=== PATIENT | male | born 1970 | race African-American/Black ===

== ENCOUNTER 2019-06-28 08:05 | Observation (INO) | payer OTHER ==
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
[2019-06-28 09:42] LABS: BASO % 0.7 % (0-2.0); EOS % 5.9 % (0-4.5); HEMATOCRIT 39.3 % (35.4-49); HEMOGLOBIN 12.9 GM/dL (11.7-16.9); LYMPH % 26.2 % (8-40); MCH 26.9 pg (25.7-33.7); MCHC 32.9 g/dl (32.0-35.9); MEAN CELL VOLUME 81.8 fl (80-96); MEAN PLT VOLUME 8.7 fl (7.5-11.1); MONO % 6.5 % (3.8-10.2); NEUT % 60.7 % (42.8-82.8); PLATELET COUNT 224 K/MM3 (134-434); RDW 13.9 % (11.9-15.9); WHITE BLOOD COUNT 5.9 K/mm3 (4.0-10.0)
[2019-06-28 10:10] LABS: ALBUMIN 3.8 g/dl (3.4-5.0); ALK PHOS 84 U/L (45-117); ANION GAP 10 MMOL/L (8-16); BILIRUBIN,TOTAL 0.3 mg/dL (0.2-1); BLOOD UREA NITROGEN 12.4 mg/dL (7-18); CALCIUM 8.4 mg/dL (8.5-10.1); CHLORIDE 102 mmol/L (98-107); CO2 25 mmol/L (21-32); CREATININE 0.8 mg/dL (0.55-1.3); GLUCOSE,RANDOM 108 mg/dL (74-106); MAGNESIUM 2.3 mg/dL (1.8-2.4); N-TERMINAL BNP 17.2 pg/ml (5-125); PHOSPHOROUS 3.4 mg/dL (2.5-4.9); POTASSIUM 3.8 mmol/L (3.5-5.1); SGOT/AST 27 U/L (15-37); SGPT/ALT 22 U/L (13-61); SODIUM 136 mmol/L (136-145); TOT PROT 7.3 g/dl (6.4-8.2)
[2019-06-28] MEDS ORDERED: SODIUM CHLORIDE 0.9% 500 ML INFUS.BAG IV ONE (11:29)
[2019-06-28 12:28] LABS: URINE APPEARANCE CLEAR; URINE BILIRUBIN NEGATIVE (NEGATIVE); URINE COLOR YELLOW; URINE GLUCOSE (UA) NEGATIVE (NEGATIVE); URINE KETONE NEGATIVE (NEGATIVE); URINE LEUK ESTERASE NEGATIVE (NEGATIVE); URINE NITRITE NEGATIVE (NEGATIVE); URINE PROTEIN NEGATIVE (NEGATIVE); URINE UROBILINOGEN 0.2 mg/dL (0.2-1.0)
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
[2019-06-28] MEDS ORDERED: ACETAMINOPHEN 325 MG TABLET (FP) PO PRN (12:52)
[2019-06-28] MEDS ORDERED: amLODIPine BESYLATE 5 MG TABLET (FP) PO ONE (13:05)
[2019-06-28] MEDS ORDERED: amLODIPine BESYLATE 5 MG TABLET (FP) ONE (13:18)
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
[2019-06-28] MEDS ORDERED: HEPARIN NA (PORCINE) 5,000 UNITS/ML 1ML VIAL ONE (22:03)
--- NOTE | 2019-06-28 23:12 | EKG ---
Test Reason : Blood Pressure : / mmHG Vent. Rate : 061 BPM Atrial Rate : 061 BPM P-R Int : 146 ms QRS Dur : 102 ms QT Int : 442 ms P-R-T Axes : 025 066 068 degrees QTc Int : 444 ms NORMAL SINUS RHYTHM NONSPECIFIC T WAVE ABNORMALITY ABNORMAL ECG WHEN COMPARED WITH ECG OF 09-MAR-2002 05:51, NO SIGNIFICANT CHANGE WAS FOUND Confirmed by BOB MACIAS MD ([id number]) on 06/28/2019 11:11:54 PM Referred By: Confirmed By:BOB MACIAS MD
[2019-06-28] MEDS: HEPARIN NA (PORCINE) 5,000 UNITS/ML 1ML VIAL SQ SCH (23:16)
[2019-06-29 06:39] LABS: BASO % 0.7 % (0-2.0); EOS % 1.4 % (0-4.5); HEMATOCRIT 40.8 % (35.4-49); HEMOGLOBIN 13.6 GM/dL (11.7-16.9); LYMPH % 18.7 % (8-40); MCHC 33.2 g/dl (32.0-35.9); MEAN CELL VOLUME 81.3 fl (80-96); MEAN PLT VOLUME 8.4 fl (7.5-11.1); NEUT % 73.2 % (42.8-82.8); PLATELET COUNT 261 K/MM3 (134-434); RBC 5.02 M/mm3 (4.00-5.60); RDW 13.7 % (11.9-15.9); WHITE BLOOD COUNT 8.4 K/mm3 (4.0-10.0)
[2019-06-29 07:19] LABS: ALBUMIN 3.7 g/dl (3.4-5.0); ALK PHOS 86 U/L (45-117); ANION GAP 6 MMOL/L (8-16); BILIRUBIN,TOTAL 0.8 mg/dL (0.2-1); BLOOD UREA NITROGEN 12.1 mg/dL (7-18); CHLORIDE 106 mmol/L (98-107); CHOLESTEROL 221 mg/dL (50-200); CO2 27 mmol/L (21-32); CREATININE 0.7 mg/dL (0.55-1.3); GLUCOSE,RANDOM 101 mg/dL (74-106); HDL CHOLESTEROL 35 mg/dL (40-60); LDL CHOLESTEROL (ONLY SJRH) 154 mg/dL (5-100); POTASSIUM 4.1 mmol/L (3.5-5.1); SGOT/AST 19 U/L (15-37); SGPT/ALT 20 U/L (13-61); SODIUM 139 mmol/L (136-145); TOT PROT 7.3 g/dl (6.4-8.2); TRIGLYCERIDES 93 mg/dL (0-150)
--- NOTE | 2019-06-29 09:12 | CON.CARD ---
Consult Consult Specialty:: Cardiology Referred by:: Dr. Rojas Reason for Consultation:: Syncope vs Seizure - History of Present Illness Chief Complaint: "I fell out" History of Present Illness: 49 M with no PMH who had a possible syncopal episode while waiting for bus. He has no recollection of event. Denies antecedent CP/SOB/Palps No cardiac hx. No recent prolonged travel. Trauma to left eye/forehead. Seen by Neuro- Syncope vs Seizure Head CT negative. Hypertensive in ER. - History Source History Provided By: Patient Limitations to Obtaining History: No Limitations - Past Medical History SECURITY SME: No: Alzheimer's, CVA, Dementia, Migraine, Multiple Sclerosis, Peripheral Neuropathy, Parkinson's, Seizure, Syncope, TIA, Vertigo, Other Cardio/Vascular: No: AFIB, Aneurysm, Aortic Insufficiency, Aortic Stenosis, CAD , CHF, Deep Vein Thrombosis, HTN, Hyperlipdemia, MD, Mitral Insufficiency, Mitral Stenosis, Murmur, Pulmonary Hypertension, Other Pulmonary: No: Asthma, Bronchitis, Cancer, COPD, O2 Dependent, Pneumonia, Previously Intubated, Pulmonary Embolus, Pulmonary Fibrosis, Sleep Apnea, Other Gastrointestinal: No: Ascites, Cancer, Constipation, Crohn's Disease, Diverticulitis, Diverticulosis, Esophageal Varices, Gastritis, GERD, GI Bleed, Hemorrhoids, Hiatal Hernia, Inflamatory Bowel Disease, Irritable Bowel Disease, Pancreatitis, Peptic Ulcer Disease, Ulcerative Colitis, Other Hepatobiliary: No: Cirrhosis, Cholelithiasis, Cholecystitis, Choledocholithiasis , Hepatitis A, Hepatitis B, Hepatitis C, Other Renal/: No: Renal Failure, Renal Inusuff, BPH, Cancer, Hematuria, Hemodialysis , Neurogenic Bladder, Renal Calculi, UTI, Other Heme/Onc: No: Anemia, B12 Deficiency, Bleeding Disorder, Cancer, Current Chemotherapy, Current Radiation Therapy, Hemochromatosis, Hypercoaguable State, Myeloproliferative Synd, Sickle Cell Disease, Sickle Cell Trait, Thrombocytopenia, Other Infectious Disease: No: AIDS, C-Diff, Herpes Zoster, HIV, MRSA, STD's, Tuberculosis, VREF, Other Psych: No: Addictions, Anxiety, Bipolar, Depression, Panic, Psychosis, Schizophrenia, Other Rheumatology: No: Fibromyalgia, Gout, Lupus, Rheumatoid Arthritis, Sarcoidosis, Vasculitis, Other ENT: No: Allergic Rhinitis, Sinusitis, Other Endocrine: No: [place]'s Disease, Florence's Disease, Diabetes Insipidus, Diabetes Mellitus, Hyperparathyroidism, Hyperthyroidism, Hypothyroidism, Osteopenia, SIADH, Other Dermatology: No: Basal Cell, Cellulitis, Eczema, Melanoma, Psoriasis, Squamous Cell, Other - Past Surgical History Past Surgical History: No: None, AAA Repair, AICD, Amputation, Appendectomy, Arthrosocopy, AV Fistula/Graft, Bariatric Surgery, Breast Biopsy, Bypass, CABG, Carotid Endarterectomy, Cataract Removal, Cholecystectomy, Colectomy, Colonoscopy, Colostomy, Craniotomy, , Cystectomy, Hernia Repair, Hysterectomy, Ileal Conduit, Ileosotomy, Joint Replacement, Kidney Transplant, Laminectomy, Liver Transplant, Mastectomy, Nephrectomy, Oopherectomy, Orchiectomy, Permanent Pacemaker, Prostatectomy, Splenectomy, Stent, Thoracotomy , TURP, Tonsillectomy, Tubal Ligation, Upper Endoscopy, Valve Replacement, Vasectomy, Vein Stripping/Ligation - Alcohol/Substance Use Hx Alcohol Use: No - Smoking History Smoking history: Never smoked - Social History History of Recent Travel: No Home Medications - Allergies Allergies/Adverse Reactions: Allergies Allergy/AdvReac Type Severity Reaction Status Date / Time No Known Allergies Allergy Verified 06/28/19 10:33 - Home Medications Home Medications: Ambulatory Orders Naproxen 500 mg PO BID 06/28/19 Family Medical History Family History: Unremarkable Review of Systems - Review of Systems Constitutional: reports: No Symptoms Eyes: reports: No Symptoms HENT: reports: No Symptoms Neck: reports: No Symptoms Cardiovascular: reports: No Symptoms Respiratory: reports: No Symptoms Gastrointestinal: reports: No Symptoms Genitourinary: reports: No Symptoms Breasts: reports: No Symptoms Reported Musculoskeletal: reports: No Symptoms Integumentary: reports: No Symptoms Neurological: reports: No Symptoms Endocrine: reports: No Symptoms Hematology/Lymphatic: reports: No Symptoms Psychiatric: reports: No Symptoms - Risk Factors Known Risk Factors: Yes: Hypertension Vital Signs: Vital Signs Temperature 97.7 F 06/29/19 06:00 Pulse Rate 69 06/29/19 06:00 Respiratory Rate 20 06/29/19 06:00 Blood Pressure 118/72 06/29/19 06:00 O2 Sat by Pulse Oximetry (%) 96 06/28/19 16:50 Constitutional: Yes: No Distress, Calm Eyes: Yes: Conjunctiva Clear, EOM Intact HENT: Yes: Other (Left forehead hematoma) Respiratory: Yes: CTA Bilaterally Gastrointestinal: Yes: Soft, Abdomen, Obese Cardiovascular: Yes: Regular Rate and Rhythm JVD: No Carotid Bruit: No PMI: Non-Displaced Heart Sounds: Yes: S1, S2 (RRR, no murmurs) Edema: No Peripheral Pulses WNL: Yes Neurological: Yes: Alert ...Motor Strength: WNL - Other Data Labs, Other Data: CBC, BMP 06/29/19 06:08 06/29/19 06:08 INR, PTT INR Cancelled 06/28/19 09:15 Troponin, BNP 06/28/19 06/28/19 06/29/19 09:15 09:15 06:08 Troponin I < 0.02 < 0.02 B-Natriuretic Peptide 17.2 Cancelled Troponin, BNP 06/28/19 06/28/19 06/29/19 09:15 09:15 06:08 Troponin I < 0.02 < 0.02 B-Natriuretic Peptide 17.2 Cancelled Laboratory Tests 06/28/19 06/29/19 06/29/19 09:15 06:08 06:08 WBC 8.4 Hgb 13.6 Plt Count 261 Sodium 139 Potassium 4.1 Creatinine 0.7 Hemoglobin A1c % AST 19 ALT 20 Alkaline Phosphatase 86 Creatine Kinase 282 Troponin I < 0.02 < 0.02 Cholesterol 221 H HDL Cholesterol 35 L TSH 0.85 06/29/19 06:08 WBC Hgb Plt Count Sodium Potassium Creatinine Hemoglobin A1c % 5.6 AST ALT Alkaline Phosphatase Creatine Kinase Troponin I Cholesterol HDL Cholesterol TSH ECG shows NSR with HR 61, QRS 102, QTc 444 no evidence of ischemic changes, has TWI in V4-V5. No prior for comparison. Stress Echo: Pending Imaging - Results Chest X-ray: Image Reviewed Cat Scan: Image Reviewed Assessment/Plan IMP: Syncope vs Seizure (unlikely pulmonary embolism: no tachycardia/ normal O2 sat) HTN REC: 1. Tele to r/o arrhythmia 2. Echo for EF assessment 3. Neuro eval ongoing 4. Amlodipine 5mg daily for moderate HTN. Will follow.
[2019-06-29] MEDS ORDERED: amLODIPine BESYLATE 5 MG TABLET (FP) ONE (10:52)
[2019-06-29] MEDS ORDERED: HEPARIN NA (PORCINE) 5,000 UNITS/ML 1ML VIAL ONE (10:53)
[2019-06-29] MEDS: amLODIPine BESYLATE 5 MG TABLET (FP) PO SCH (11:00)
[2019-06-29] MEDS: HEPARIN NA (PORCINE) 5,000 UNITS/ML 1ML VIAL SQ SCH ×2 (11:00→21:11)
--- NOTE | 2019-06-29 11:35 | PN ---
Physical Exam: SUBJECTIVE: Patient seen and examined. He feels lightheaded and sleepy. OBJECTIVE: Vital Signs Period Temp Pulse Resp BP Sys/Agosto Pulse Ox Last 24 Hr 97.7 F-98.7 F 61-72 16-20 118-184/72-93 96 GENERAL: The patient is drowsy, and fully oriented, in no acute distress. HEENT: Left periorbital edema LUNGS: Breath sounds equal, clear to auscultation bilaterally, no wheezes, no crackles, no accessory muscle use. HEART: Regular rate and rhythm, S1, S2 without murmur, rub or gallop. ABDOMEN: Obese, soft, nontender, nondistended, normoactive bowel sounds, no guarding, no rebound, no hepatosplenomegaly, no masses. EXTREMITIES: 2+ pulses, warm, well-perfused, trace edema. Laboratory Results - last 24 hr 06/28/19 06/28/19 06/29/19 09:15 09:56 06:08 WBC 8.4 RBC 5.02 Hgb 13.6 Hct 40.8 MCV 81.3 MCH 27.0 MCHC 33.2 RDW 13.7 Plt Count 261 MPV 8.4 Absolute Neuts (auto) 6.1 Neutrophils % 73.2 D Lymphocytes % 18.7 D Monocytes % 6.0 Eosinophils % 1.4 Basophils % 0.7 Nucleated RBC % 0 Sodium Potassium Chloride Carbon Dioxide Anion Gap BUN Creatinine Est GFR (CKD-EPI)AfAm Est GFR (CKD-EPI)NonAf Random Glucose Hemoglobin A1c % Calcium Total Bilirubin AST ALT Alkaline Phosphatase Creatine Kinase Creatine Kinase Index 1.5 CK-MB (CK-2) 7.4 H Troponin I Total Protein Albumin Triglycerides Cholesterol Total LDL Cholesterol HDL Cholesterol TSH Urine Color Yellow Urine Appearance Clear Urine pH 7.0 Ur Specific [place] 1.015 Urine Protein Negative Urine Glucose (UA) Negative Urine Ketones Negative Urine Blood Negative Urine Nitrite Negative Urine Bilirubin Negative Urine Urobilinogen 0.2 Ur Leukocyte Esterase Negative 06/29/19 06/29/19 06:08 06:08 WBC RBC Hgb Hct MCV MCH MCHC RDW Plt Count MPV Absolute Neuts (auto) Neutrophils % Lymphocytes % Monocytes % Eosinophils % Basophils % Nucleated RBC % Sodium 139 Potassium 4.1 Chloride 106 Carbon Dioxide 27 Anion Gap 6 L BUN 12.1 Creatinine 0.7 Est GFR (CKD-EPI)AfAm 127.53 Est GFR (CKD-EPI)NonAf 110.04 Random Glucose 101 Hemoglobin A1c % 5.6 Calcium 9.0 Total Bilirubin 0.8 AST 19 ALT 20 Alkaline Phosphatase 86 Creatine Kinase 282 Creatine Kinase Index 1.1 CK-MB (CK-2) 3.3 Troponin I < 0.02 Total Protein 7.3 Albumin 3.7 Triglycerides 93 Cholesterol 221 H Total LDL Cholesterol 154 H HDL Cholesterol 35 L TSH 0.85 Urine Color Urine Appearance Urine pH Ur Specific [place] Urine Protein Urine Glucose (UA) Urine Ketones Urine Blood Urine Nitrite Urine Bilirubin Urine Urobilinogen Ur Leukocyte Esterase Active Medications Generic Name Dose Route Start Last Admin Trade Name Freq PRN Reason Stop Dose Admin Acetaminophen 650 mg 06/28/19 12:52 Tylenol - PO Q6H PRN PAIN LEVEL 4 - 6 Amlodipine Besylate 5 mg 06/30/19 10:00 Norvasc - PO DAILY MEERA Heparin Sodium (Porcine) 5,000 unit 06/28/19 22:00 06/28/19 23:16 Heparin - SQ 5,000 unit BID MEERA Administration ASSESSMENT/PLAN: This is a 49 year old man with a history of HTN, syncope who presented to the ED after passing out at a bus stop on his way to work. 1. Syncope - Monitor for arrhythmia on telemetry - Orthostatic vitals - Echo - Outpatient EEG 2. Head trauma - Head CT shows no acute pathology, right frontal encephalomalacia, left temporal hypodensity probably encephalomalacia, right frontal rosario hole, mild to moderate bilateral cerebellar atrophy, partial opacification of left maxillary sinus, mild mucosal thickening of right maxillary sinus, left superficial soft tissue hematoma - Facial bones CT showed no acute fracture, superficial soft tissue hematoma left mid-face - C-spine CT showed no acute fracture 3. HTN - Continue Norvasc 4. Hyperlipidemia - Start Lipitor Visit type - Emergency Visit Emergency Visit: Yes ED Registration Date: 06/28/19 Care time: The patient presented to the Emergency Department on the above date and was hospitalized for further evaluation of their emergent condition. - New Patient This patient is new to me today: Yes Date on this admission: 06/29/19 - Critical Care Critical Care patient: No - Discharge Referral Referred to [facility] No
[2019-06-29 16:43] VITALS: BMI 37.8
[2019-06-29] MEDS ORDERED: ATORVASTATIN CA 10 MG TABLET (FP) PO SCH (22:00)
--- NOTE | 2019-06-30 08:09 | PN ---
Progress Note, Physician Chief Complaint: Examined with mother at bedside. Pending TTE History of Present Illness: The patient is a 49 year old male, with a significant PMH of HTN who presents to the emergency department BIB after a syncopal fall resulting in facial injury. Patient reports that he woke up this morning, and remembers eating eggs and a bagel, then taking the bus to work. As per EMS, the patient syncopized while walking to work at [employer] outside. Patient does not remember the syncopal event. Patient endorses one syncopal episode where he fell down the stairs. Patient currently endorses facial and jaw pain, and some lightheadedness. The patient denies chest pain, shortness of breath and dizziness. Denies fever, chills, nausea, vomiting, diarrhea and constipation. Denies dysuria, frequency, urgency and hematuria. Denies any other symptoms. - Current Medication List Current Medications: Active Medications Acetaminophen (Tylenol -) 650 mg PO Q6H PRN PRN Reason: PAIN LEVEL 4 - 6 Amlodipine Besylate (Norvasc -) 5 mg PO DAILY [facility] Last Admin: 06/29/19 11:00 Dose: 5 mg Atorvastatin Calcium (Lipitor -) 10 mg PO HS [facility] Last Admin: 06/29/19 21:11 Dose: 10 mg Heparin Sodium (Porcine) (Heparin -) 5,000 unit SQ BID [facility] Last Admin: 06/29/19 21:11 Dose: 5,000 unit - Objective Vital Signs: Vital Signs Temperature 98.2 F 06/30/19 05:33 Pulse Rate 64 06/30/19 05:33 Respiratory Rate 18 06/30/19 05:33 Blood Pressure 144/99 06/30/19 05:33 O2 Sat by Pulse Oximetry (%) 98 06/29/19 20:32 Constitutional: Yes: Well Nourished, No Distress, Calm Eyes: Yes: WNL, Conjunctiva Clear HENT: Yes: WNL, Atraumatic, Normocephalic Neck: Yes: WNL, Supple, Trachea Midline Cardiovascular: Yes: WNL Respiratory: Yes: WNL, Regular, CTA Bilaterally Gastrointestinal: Yes: WNL, Normal Bowel Sounds ...Rectal Exam: Yes: Deferred Genitourinary: Yes: WNL Breast(s): Yes: WNL Musculoskeletal: Yes: WNL Extremities: Yes: WNL Edema: No Peripheral Pulses WNL: Yes Peripheral Pulses: Left Radial: 2+, Right Radial: 2+, Left Doralis Pedis: 2+, Right Dorsalis Pedis: 2+, Left Femoral: 2+, Right Femoral: 2+ Integumentary: Yes: Bruising, Other (abrasion to left eye) Neurological: Yes: WNL, Alert, Oriented ...Motor Strength: WNL Psychiatric: Yes: WNL Labs: CBC, BMP 06/29/19 06:08 06/29/19 06:08 INR, PTT INR Cancelled 06/28/19 09:15 - ....Imaging Cat Scan: Report Reviewed (Head CT shows no acute pathology, right frontal encephalomalacia, left temporal hypodensity probably encephalomalacia, right frontal rosario hole, mild to moderate bilateral cerebellar atrophy, partial opacification of left maxillary sinus, mild mucosal thickening of right maxillary sinus, left superficial soft tissue hematoma - Facial bones CT showed no acute fracture, superficial soft tissue hematoma left mid-face - C-spine CT showed no acute fracture) Problem List - Problems (1) HTN (hypertension) Assessment/Plan: BP better controlled on norvasc c/w 10mg daily Code(s): I10 - ESSENTIAL (PRIMARY) HYPERTENSION (2) Facial abrasion Assessment/Plan: abrasion sustained during fall bacitracin BID Code(s): S00.81XA - ABRASION OF OTHER PART OF HEAD, INITIAL ENCOUNTER (3) Prophylactic measure Assessment/Plan: FEN low sodium diet no additional IVF, adequate PO intake monitor electrolytes and Cr DVT heparin sq Dispo maintain in tele full code discharge planning Code(s): Z29.9 - ENCOUNTER FOR PROPHYLACTIC MEASURES, UNSPECIFIED (4) Syncope and collapse Assessment/Plan: HCT/C spine without acute pathology TTE pending appreciate cardiology consultation if normal, will dc with follow up with home PCP at [facility] neorology consultation Code(s): R55 - SYNCOPE AND COLLAPSE Visit type - Emergency Visit Emergency Visit: Yes ED Registration Date: 06/28/19 Care time: The patient presented to the Emergency Department on the above date and was hospitalized for further evaluation of their emergent condition. - New Patient This patient is new to me today: Yes Date on this admission: 06/30/19 - Critical Care Critical Care patient: No - Discharge Referral Referred to [facility] No
--- NOTE | 2019-06-30 10:03 | PN ---
Progress Note, Physician Chief Complaint: syncope History of Present Illness: no anxiety/panic, no tachy no cp, sob (including walks a lot at work) no dizzy/presyncope +prodrome of dizzy/LH when fainted (couple of seconds only) no assctd neuro deficits admits to several recent episodes dizzy/LH at work, fell (without LOC) couple of times does not drink much fluid except coke on DOA, hadn't eaten or drank anything b/c waits till he gets to work--that is his usual routine - Current Medication List Current Medications: Active Medications Acetaminophen (Tylenol -) 650 mg PO Q6H PRN PRN Reason: PAIN LEVEL 4 - 6 Amlodipine Besylate (Norvasc -) 5 mg PO DAILY [facility] Last Admin: 06/29/19 11:00 Dose: 5 mg Atorvastatin Calcium (Lipitor -) 10 mg PO HS [facility] Last Admin: 06/29/19 21:11 Dose: 10 mg Heparin Sodium (Porcine) (Heparin -) 5,000 unit SQ BID [facility] Last Admin: 06/29/19 21:11 Dose: 5,000 unit - Objective Vital Signs: Vital Signs Temperature 98.2 F 06/30/19 05:33 Pulse Rate 64 06/30/19 05:33 Respiratory Rate 18 06/30/19 05:33 Blood Pressure 144/99 06/30/19 05:33 O2 Sat by Pulse Oximetry (%) 98 06/29/19 20:32 Constitutional: Yes: Well Nourished, No Distress, Calm Cardiovascular: Yes: Regular Rate and Rhythm, S1, S2. No: Gallop, Murmur Respiratory: Yes: Regular, CTA Bilaterally. No: Accessory Muscle Use, Rales, Wheezes Extremities: No: Cold Edema: No Neurological: Yes: Alert, Oriented Psychiatric: No: Agitated Labs: CBC, BMP 06/29/19 06:08 06/29/19 06:08 INR, PTT INR Cancelled 06/28/19 09:15 Assessment/Plan ECG shows NSR with HR 61, QRS 102, QTc 444 no evidence of ischemic changes, has TWI in V4-V5. No prior for comparison. Assessment/Plan IMP: Syncope vs Seizure (unlikely pulmonary embolism: no tachycardia/ normal O2 sat) HTN REC: -Tele to r/o arrhythmia -Echo for EF assessment -Neuro eval ongoing -Amlodipine 5mg daily for 150s/100s range initially--bp improved -orthostatics WNL, no signs of volume depletion on presentation -advised pt and mother, assuming tele and echo here are unremarkable, he should go home and have prolonged rhythm monitor as outpt--he prefers to arrange this as an outpt through his [facility] PMD
[2019-06-30 10:13] LABS: BASO % 0.4 % (0-2.0); EOS % 2.5 % (0-4.5); HEMATOCRIT 42.4 % (35.4-49); HEMOGLOBIN 13.9 GM/dL (11.7-16.9); LYMPH % 25.8 % (8-40); MCHC 32.9 g/dl (32.0-35.9); MEAN CELL VOLUME 82.2 fl (80-96); MEAN PLT VOLUME 8.8 fl (7.5-11.1); MONO % 5.2 % (3.8-10.2); NEUT % 66.1 % (42.8-82.8); PLATELET COUNT 270 K/MM3 (134-434); RBC 5.15 M/mm3 (4.00-5.60); RDW 13.8 % (11.9-15.9); WHITE BLOOD COUNT 7.4 K/mm3 (4.0-10.0)
[2019-06-30] MEDS ORDERED: PT OWN MED DRAWER 7, Y5N ONE ×2 (10:25→13:14)
[2019-06-30] MEDS: amLODIPine BESYLATE 5 MG TABLET (FP) PO SCH (10:35)
[2019-06-30] MEDS: HEPARIN NA (PORCINE) 5,000 UNITS/ML 1ML VIAL SQ SCH (10:35)
[2019-06-30 10:40] LABS: ALBUMIN 3.6 g/dl (3.4-5.0); BILIRUBIN,TOTAL 0.5 mg/dL (0.2-1); BLOOD UREA NITROGEN 19.4 mg/dL (7-18); CALCIUM 9.2 mg/dL (8.5-10.1); CREATININE 0.8 mg/dL (0.55-1.3); MAGNESIUM 2.5 mg/dL (1.8-2.4); POTASSIUM 3.8 mmol/L (3.5-5.1); TOT PROT 7.3 g/dl (6.4-8.2)
[2019-06-30 14:31] VITALS: BP 136/89; PULSE 103; TEMP 98.2
--- NOTE | 2019-06-30 15:59 | ECHO ---
Name: MICHELLE JOHNSON Exam:Adult Echocardiogram Study Date: 06/30/2019 11:20 AM Age: 49 yrs Height: 72 in Weight: 340 lb BSA: 2.7 m2 MMode/2D Measurements & Calculations IVSd: 0.95 cm Ao root diam: 2.9 cm LVIDd: 4.4 cm LA dimension: 3.1 cm LVIDs: 3.0 cm LVPWd: 1.2 cm LVPWs: 1.5 cm EDV(Teich): 89.1 ml ESV(Teich): 34.8 ml LVOT diam: 2.2 cm Doppler Measurements & Calculations MV E max humphrey: 41.0 cm/sec Ao V2 max: 132.2 cm/sec MV A max humphrey: 61.7 cm/sec Ao max P.0 mmHg MV E/A: 0.66 MV dec time: 0.19 sec PA V2 max: 118.8 cm/sec PI end-d humphrey: 118.8 cm/sec PA max P.6 mmHg Med Peak E' Humphrey: 6.0 cm/sec Med E/e': 6.8 Lat Peak E' Humphrey: 7.8 cm/sec Lat E/e': 5.3 Procedure A complete two-dimensional transthoracic echocardiogram was performed (2D, M-mode, Doppler and color flow Doppler). Left Ventricle The left ventricle is normal in size. Left ventricular systolic function is normal. Ejection Fraction = 60- 65%. No regional wall motion abnormalities noted. Right Ventricle The right ventricle is normal size. The right ventricular systolic function is normal. Atria The left atrial size is normal. Right atrial size is normal. Mitral Valve The mitral valve is normal in structure and function. There is mild mitral regurgitation. Tricuspid Valve The tricuspid valve is normal in structure and function. No tricuspid regurgitation. Aortic Valve The aortic valve is normal in structure and function. No aortic regurgitation is present. Pulmonic Valve The pulmonic valve is not well visualized. Mild pulmonic valvular regurgitation. Great Vessels The aortic root is normal size. Pericardium/Pleura There is no pericardial effusion. Interpretation Summary The left ventricle is normal in size. Left ventricular systolic function is normal. No regional wall motion abnormalities noted. Ejection Fraction = 60-65%. The right ventricular systolic function is normal. The left atrial size is normal. Right atrial size is normal. There is mild mitral regurgitation. Mild pulmonic valvular regurgitation. There is no pericardial effusion. Hugo Perez MD 06/30/2019 03:59 PM
--- NOTE | 2019-06-30 16:46 | DS ---
Physical Exam: SUBJECTIVE: Patient seen and examined Medically cleared for discharge home with no services. Mother to call [facility] for appointment for follow up OBJECTIVE: Vital Signs Period Temp Pulse Resp BP Sys/Agosto Pulse Ox Last 24 Hr 97.8 F-98.2 F 64-103 18-20 113-144/88-99 98-98 PHYSICAL EXAM Constitutional: Yes: Well Nourished, No Distress, Calm Eyes: Yes: WNL, Conjunctiva Clear HENT: Yes: WNL, Atraumatic, Normocephalic Neck: Yes: WNL, Supple, Trachea Midline Cardiovascular: Yes: WNL Respiratory: Yes: WNL, Regular, CTA Bilaterally Gastrointestinal: Yes: WNL, Normal Bowel Sounds ...Rectal Exam: Yes: Deferred Genitourinary: Yes: WNL Breast(s): Yes: WNL Musculoskeletal: Yes: WNL Extremities: Yes: WNL Edema: No Peripheral Pulses WNL: Yes Peripheral Pulses: Left Radial: 2+, Right Radial: 2+, Left Doralis Pedis: 2+, Right Dorsalis Pedis: 2+, Left Femoral: 2+, Right Femoral: 2+ Integumentary: Yes: Bruising, Other (abrasion to left eye) Neurological: Yes: WNL, Alert, Oriented ...Motor Strength: WNL Psychiatric: Yes: WNL LABS Laboratory Results - last 24 hr 06/30/19 06/30/19 06/30/19 06:16 09:28 09:28 WBC 7.4 RBC 5.15 Hgb 13.9 Hct 42.4 MCV 82.2 MCH 27.0 MCHC 32.9 RDW 13.8 Plt Count 270 MPV 8.8 Absolute Neuts (auto) 4.9 Neutrophils % 66.1 Lymphocytes % 25.8 D Monocytes % 5.2 Eosinophils % 2.5 Basophils % 0.4 Nucleated RBC % 0 Sodium 140 Potassium 3.8 Chloride 107 Carbon Dioxide 25 Anion Gap 9 BUN 19.4 H Creatinine 0.8 Est GFR (CKD-EPI)AfAm 120.72 Est GFR (CKD-EPI)NonAf 104.16 POC Glucometer 103 Random Glucose 141 H Calcium 9.2 Magnesium 2.5 H Total Bilirubin 0.5 AST 16 ALT 20 Alkaline Phosphatase 87 Total Protein 7.3 Albumin 3.6 HOSPITAL COURSE: Date of Admission:06/28/19 Date of Discharge: 06/30/19 - ....Imaging Cat Scan: Report Reviewed (Head CT shows no acute pathology, right frontal encephalomalacia, left temporal hypodensity probably encephalomalacia, right frontal rosario hole, mild to moderate bilateral cerebellar atrophy, partial opacification of left maxillary sinus, mild mucosal thickening of right maxillary sinus, left superficial soft tissue hematoma - Facial bones CT showed no acute fracture, superficial soft tissue hematoma left mid-face - C-spine CT showed no acute fracture) Problem List - Problems (1) HTN (hypertension) Assessment/Plan: BP better controlled on norvasc c/w 5mg daily Code(s): I10 - ESSENTIAL (PRIMARY) HYPERTENSION (2) Facial abrasion Assessment/Plan: abrasion sustained during fall bacitracin BID Code(s): S00.81XA - ABRASION OF OTHER PART OF HEAD, INITIAL ENCOUNTER (3) Prophylactic measure Assessment/Plan: FEN low sodium diet no additional IVF, adequate PO intake electrolytes and Cr wnl DVT heparin sq Dispo maintain in tele full code discharge planning Code(s): Z29.9 - ENCOUNTER FOR PROPHYLACTIC MEASURES, UNSPECIFIED (4) Syncope and collapse Assessment/Plan: HCT/C spine without acute pathology seen by cardiology TTE done without significant findings. To follow up with home PCP at [facility] [place] neorology consultation Code(s): R55 - SYNCOPE AND COLLAPSE Minutes to complete discharge: 55 Discharge Summary Problems reviewed: Yes Reason For Visit: SYNCOPE AND COLLAPSE Current Active Problems Facial abrasion (Acute) HTN (hypertension) (Acute) Prophylactic measure (Acute) Syncope and collapse (Acute) Hospital Course: HOSPITAL COURSE: Date of Admission:06/28/19 Date of Discharge: 06/30/19 - ....Imaging Cat Scan: Report Reviewed (Head CT shows no acute pathology, right frontal encephalomalacia, left temporal hypodensity probably encephalomalacia, right frontal rosario hole, mild to moderate bilateral cerebellar atrophy, partial opacification of left maxillary sinus, mild mucosal thickening of right maxillary sinus, left superficial soft tissue hematoma - Facial bones CT showed no acute fracture, superficial soft tissue hematoma left mid-face - C-spine CT showed no acute fracture) Problem List - Problems (1) HTN (hypertension) Assessment/Plan: BP better controlled on norvasc c/w 5mg daily Code(s): I10 - ESSENTIAL (PRIMARY) HYPERTENSION (2) Facial abrasion Assessment/Plan: abrasion sustained during fall bacitracin BID Code(s): S00.81XA - ABRASION OF OTHER PART OF HEAD, INITIAL ENCOUNTER (3) Prophylactic measure Assessment/Plan: FEN low sodium diet no additional IVF, adequate PO intake electrolytes and Cr wnl DVT heparin sq Dispo maintain in tele full code discharge planning Code(s): Z29.9 - ENCOUNTER FOR PROPHYLACTIC MEASURES, UNSPECIFIED (4) Syncope and collapse Assessment/Plan: HCT/C spine without acute pathology seen by cardiology TTE done without significant findings. To follow up with home PCP at [facility] [place] neorology consultation Code(s): R55 - SYNCOPE AND COLLAPSE Condition: Improved - Instructions Diet, Activity, Other Instructions: DISCHARGE YOUR VISIT You came to the hospital because you feel and sustained a cut to your eye. Your blood pressure was high and extra medication was given-NORVASC A electrocardiogram was done and was normal. We are recommending that you have a holter monitor placement with your doctor a [facility]. This is a heart monitor that will stay on for 24 hours and record your heart rhythm. MEDICATIONS Please continue to take your home medications as prescribed. There was no changes. Continue to take NORVASC (amlodopine) 5mg daily ATORVASTATIN 10mg at bedtime DIET Continue your home diet ADDITIONAL CARE Please make an appointment to see your primary care at [facility], 1 week from today. Your mother is calling for the appointment ADDITIONAL INFORMATION Please call 911 or come directly to the emergency department if you experience unusual headache, vision change, shortness of breath, chest pain, numbness, tingling, loss of alertness/awareness, loss of function, unusual bleeding or any alarming symptoms. Disposition: HOME - Home Medications Comprehensive Discharge Medication List: Ambulatory Orders Naproxen 500 mg PO BID 06/28/19 Amlodipine Besylate [Norvasc -] 5 mg PO DAILY #30 tablet 06/30/19 Atorvastatin Ca [Lipitor] 10 mg PO HS #30 tablet 06/30/19 Bacitracin - [Bacitracin Topical Ointment -] 1 applic TP BID tube 06/30/19 Prescription Drug Monitoring Program (I-STOP) results: I-STOP not reviewed Problem List - Problems (1) HTN (hypertension) Code(s): I10 - ESSENTIAL (PRIMARY) HYPERTENSION (2) Facial abrasion Code(s): S00.81XA - ABRASION OF OTHER PART OF HEAD, INITIAL ENCOUNTER (3) Prophylactic measure Code(s): Z29.9 - ENCOUNTER FOR PROPHYLACTIC MEASURES, UNSPECIFIED (4) Syncope and collapse Code(s): R55 - SYNCOPE AND COLLAPSE This patient is new to me today: Yes Date on this admission: 06/30/19 Emergency Visit: Yes ED Registration Date: 06/28/19 Care time: The patient presented to the Emergency Department on the above date and was hospitalized for further evaluation of their emergent condition. Critical Care patient: No - Discharge Referral Referred to [facility] No
[2019-06-30] MEDS ORDERED: BACITRACIN 15 GM TUBE TOPICAL OINTMENT TP SCH (22:00)
== END 2019-06-30 16:54 | disposition home or self-care (01) ==
LOC: JER 08:05 → JERBED 11:25 → J4W 06-29 15:10
PROVIDERS: ADMIT Internal Medicine; ATTEND Nurse Practitioner Acute Care
PROC: 0HQ1XZZ Repair Face Skin, External Approach (ICD-10-PCS; principal; 2019-06-28)
PROC: 3E023GC Introduction of Other Therapeutic Substance into Muscle, Percutaneous Approach (ICD-10-PCS; 2019-06-28)
DX: R55 Syncope and collapse (principal); I10 Essential (primary) hypertension; E78.5 Hyperlipidemia, unspecified; H05.222 Edema of left orbit; S01.112A Laceration without foreign body of left eyelid and periocular area, initial encounter; W18.39XA Other fall on same level, initial encounter; Y93.89 Activity, other specified; Y92.59 Other trade areas as the place of occurrence of the external cause; Y99.0 Civilian activity done for income or pay
CPT/HCPCS: 36415; 70450-TC; 70486-TC; 71045-TC-FY; 72125-TC; 80053; 80061; 81003; 82550; 82553; 82962; 83036; 83721; 83735; 83880; 84100; 84443; 84484; 85025; 87086; 87186; 93005; 93010; 93306-TC; 99285-25; G0378; J1644

== ENCOUNTER 2021-10-08 15:47 | Emergency (ER) | payer OTHER ==
[2021-10-08 15:54] VITALS: BP 138/84; PULSE 84; TEMP 98.1; BMI 40.6
[2021-10-08] MEDS ORDERED: DIPHTH,PERTUSS(ACELL),TET 0.5 ML DISP.SYRIN IM ONE ×2 (15:54→16:02)
== END 2021-10-08 19:06 | disposition home or self-care (01) ==
LOC: JER 15:47
PROC: 3E0234Z Introduction of Serum, Toxoid and Vaccine into Muscle, Percutaneous Approach (ICD-10-PCS; principal; 2021-10-08)
DX: S00.01XA Abrasion of scalp, initial encounter (principal); W19.XXXA Unspecified fall, initial encounter
CPT/HCPCS: 70450-TC; 90715; 99284-25

== ENCOUNTER 2022-01-31 20:33 | Observation (INO) | payer OTHER ==
[2022-01-31 20:58] VITALS: BMI 38.6
[2022-01-31 23:18] LABS: BASO % 0.5 % (0-2.0); EOS % 1.9 % (0-4.5); HEMATOCRIT 43.9 % (35.4-49); HEMOGLOBIN 14.3 GM/dL (11.7-16.9); LYMPH % 18.9 % (8-40); MCH 26.9 pg (25.7-33.7); MCHC 32.7 g/dl (32.0-35.9); MEAN CELL VOLUME 82.4 fl (80-96); MEAN PLT VOLUME 8.4 fl (7.5-11.1); MONO % 6.2 % (3.8-10.2); NEUT % 72.5 % (42.8-82.8); PLATELET COUNT 280 10^3/uL (134-434); RBC 5.32 M/mm3 (4.00-5.60); RDW 13.7 % (11.9-15.9); WHITE BLOOD COUNT 8.1 K/mm3 (4.0-10.0)
[2022-01-31 23:25] LABS: INR 1.05 (0.83-1.09); PROTHROMBIN TIME (PATIENT) 12.1 SEC (9.7-13.0)
[2022-01-31 23:28] LABS: ACTIVATED PTT 32.3 SECONDS (25.2-36.5)
[2022-01-31 23:45] LABS: CALCIUM 9.5 mg/dL (8.5-10.1)
[2022-01-31 23:46] LABS: ALBUMIN 4.3 g/dl (3.4-5.0); BLOOD UREA NITROGEN 12.9 mg/dL (7-18); MAGNESIUM 2.6 mg/dL (1.8-2.4)
[2022-01-31 23:48] LABS: CREATININE 0.8 mg/dL (0.55-1.3)
[2022-01-31 23:49] LABS: TOT PROT 8.1 g/dl (6.4-8.2)
[2022-01-31 23:51] LABS: BILIRUBIN,TOTAL 0.4 mg/dL (0.2-1)
[2022-02-01 07:49] LABS: BASO % 0.5 % (0-2.0); EOS % 2.2 % (0-4.5); HEMATOCRIT 40.7 % (35.4-49); HEMOGLOBIN 13.3 GM/dL (11.7-16.9); LYMPH % 21.1 % (8-40); MCH 27.1 pg (25.7-33.7); MCHC 32.6 g/dl (32.0-35.9); MEAN CELL VOLUME 83.1 fl (80-96); MEAN PLT VOLUME 8.7 fl (7.5-11.1); MONO % 8.1 % (3.8-10.2); NEUT % 68.1 % (42.8-82.8); PLATELET COUNT 262 10^3/uL (134-434); RDW 13.7 % (11.9-15.9)
[2022-02-01 08:24] LABS: BLOOD UREA NITROGEN 10.6 mg/dL (7-18); CALCIUM 9.1 mg/dL (8.5-10.1)
[2022-02-01 08:25] LABS: ALBUMIN 4.1 g/dl (3.4-5.0); MAGNESIUM 2.5 mg/dL (1.8-2.4)
[2022-02-01 08:29] LABS: CREATININE 0.8 mg/dL (0.55-1.3)
[2022-02-01 08:30] LABS: BILIRUBIN,TOTAL 0.6 mg/dL (0.2-1); TOT PROT 7.7 g/dl (6.4-8.2)
[2022-02-01] MEDS ORDERED: ENOXAPARIN NA (PORCINE) 40 MG/0.4 ML DISP.SYRIN SQ ONE (10:04)
[2022-02-01] MEDS ORDERED: amLODIPine BESYLATE 5 MG TABLET (FP) ONE (10:04)
[2022-02-01] MEDS: ENOXAPARIN NA (PORCINE) 40 MG/0.4 ML DISP.SYRIN SQ SCH (11:10)
[2022-02-01] MEDS: amLODIPine BESYLATE 5 MG TABLET (FP) PO SCH (11:11)
[2022-02-01 17:28] LABS: PH,URINE 7.5 (5.0-8.0); URINE APPEARANCE CLEAR; URINE BILIRUBIN NEGATIVE (NEGATIVE); URINE COLOR YELLOW; URINE GLUCOSE (UA) NEGATIVE (NEGATIVE); URINE KETONE NEGATIVE (NEGATIVE); URINE LEUK ESTERASE NEGATIVE (NEGATIVE); URINE NITRITE NEGATIVE (NEGATIVE); URINE PROTEIN NEGATIVE (NEGATIVE)
[2022-02-01] MEDS ORDERED: ATORVASTATIN CA 10 MG TABLET (FP) PO SCH (22:00)
[2022-02-01] MEDS ORDERED: ATORVASTATIN CA 10 MG TABLET (FP) ONE (22:40)
[2022-02-02 07:41] LABS: CALCIUM 8.9 mg/dL (8.5-10.1)
[2022-02-02 07:42] LABS: BLOOD UREA NITROGEN 16.8 mg/dL (7-18); MAGNESIUM 2.2 mg/dL (1.8-2.4)
[2022-02-02 07:44] LABS: CREATININE 0.7 mg/dL (0.55-1.3)
[2022-02-02 07:45] LABS: HEMATOCRIT 41.2 % (35.4-49); HEMOGLOBIN 13.8 GM/dL (11.7-16.9); MCH 27.4 pg (25.7-33.7); MCHC 33.5 g/dl (32.0-35.9); MEAN CELL VOLUME 81.9 fl (80-96); MEAN PLT VOLUME 8.1 fl (7.5-11.1); PLATELET COUNT 242 10^3/uL (134-434); RBC 5.03 M/mm3 (4.00-5.60); RDW 13.6 % (11.9-15.9); WHITE BLOOD COUNT 8.2 K/mm3 (4.0-10.0)
[2022-02-02 07:46] LABS: PHOSPHOROUS 4.2 mg/dL (2.5-4.9)
[2022-02-02 08:02] VITALS: BP 126/76; PULSE 69; TEMP 97.9
[2022-02-02] MEDS ORDERED: amLODIPine BESYLATE 5 MG TABLET (FP) ONE (09:13)
[2022-02-02] MEDS ORDERED: ENOXAPARIN NA (PORCINE) 40 MG/0.4 ML DISP.SYRIN SQ ONE (09:13)
[2022-02-02] MEDS: amLODIPine BESYLATE 5 MG TABLET (FP) PO SCH (09:19)
[2022-02-02] MEDS: ENOXAPARIN NA (PORCINE) 40 MG/0.4 ML DISP.SYRIN SQ SCH (09:19)
== END 2022-02-02 14:05 | disposition left against medical advice (07) ==
LOC: JER 20:33 → JERBED 02-01 00:31
PROVIDERS: ADMIT Hospitalist
PROC: 3E023GC Introduction of Other Therapeutic Substance into Muscle, Percutaneous Approach (ICD-10-PCS; principal; 2022-02-01)
DX: R55 Syncope and collapse (principal); S09.90XA Unspecified injury of head, initial encounter; Y93.89 Activity, other specified; W18.39XA Other fall on same level, initial encounter; Y92.410 Unspecified street and highway as the place of occurrence of the external cause; E78.5 Hyperlipidemia, unspecified; I10 Essential (primary) hypertension; R51.9 Headache, unspecified; Z96.651 Presence of right artificial knee joint; Z29.8 Encounter for other specified prophylactic measures; E66.9 Obesity, unspecified; Z68.38 Body mass index [BMI] 38.0-38.9, adult
CPT/HCPCS: 36415; 70450-TC; 70486-TC; 71045-TC-FY; 72125-TC; 80048; 80053; 80061; 81003; 82607; 83735; 84100; 84443; 84484; 85025; 85027; 85610; 85730; 86780; 86850; 86900; 86901; 87086; 87186; 93005; 93010; 93306-TC; 93880-TC; 96372; 99285-25; C9803-CS; G0378; U0003; U0005